=== PATIENT | male | born 1955 | race Caucasian/White ===

== ENCOUNTER 2019-02-19 10:51 | Emergency (ER) | payer OTHER, MEDICAID ==
[~2019-02-19] VITALS: Ht 182.9 cm; Wt 65.8 kg
[2019-02-19 10:57] VITALS: Ht 182.9 cm; Wt 65.8 kg
--- NOTE | 2019-02-19 11:02 | NUR ---
PT COMES IN WITH C/O LOWER ABDOMINAL PAIN, CONSTANT AND NON RADAITING X4 DAYS. STATES "I FEEL CONSTIPATED", LAST BM 5 DAYS AGO. DENIES NARCOTIC USE. REPORTS HAVING CONSTIPATION ISSUES FOR THE LAST TWO MONTHS. ABD ROUND, TENDER TO PALPATION. HYPOACTIVE BS X 4 QUADS. DENIES DYSURIA, BUT REPORTS HE ONLY HAS 1 KIDNEY WORKING. SKIN W/D/I. DRINKIN POF LUIDS AND FOOD WITHOUT ANY ISSUES. DENIES N/V/D. NADIYATNG FOR ER MD PUENTES. CALL LIGHT GIVEN.
--- NOTE | 2019-02-19 12:03 | NUR ---
MEDICATED ORDERED, CALLLIGHT WITHIN REACH.
--- NOTE | 2019-02-19 12:52 | NUR ---
PT WENT TO RESTROOM, BUT UNABLE TO DEFECATE,NOW C/O SEVERE ABD PAIN 03/27. DR CRAMER INFORMED.
--- NOTE | 2019-02-19 13:12 | NUR ---
FLEET ENEMA ADMINISTEREDM WAS UNABLE TO VIEW ON EMAR. DR CRAMER INFOMRED.
--- NOTE | 2019-02-19 14:50 | NUR ---
SUPRE ORAL GIVEN ORDERED.
[2019-02-19 16:10] LABS: BASOPHIL % 0.2 % (0-2); PLATELET COUNT 237 x10^3mcL (130-400); RED CELL DISTRIBUTION WIDTH 14.1 % (11.5-14.5)
[2019-02-19 16:28] LABS: ALBUMIN 4.4 g/dL (3.4-5.0); BILIRUBIN TOTAL 0.56 mg/dL (0.20-1.00); CALCIUM 10.1 mg/dL (8.5-10.1); CARBON DIOXIDE 26.7 mmol/L (21-32); POTASSIUM SERUM 3.5 mmol/L (3.5-5.1)
[2019-02-19 16:40] LABS: CREATININE SERUM 4.3 mg/dL (0.7-1.3)
--- NOTE | 2019-02-19 16:40 | NUR ---
RECEIVED CRITIAL LAB VALUE CALL FROM LAB: BUN = 64, CREAT= 4.3, PRIMARY RN AND DR CRAMER MADE AWARE.//APR RN
[2019-02-19 17:47] LABS: CHOLESTEROL/HDL RATIO 3.1; MAGNESIUM 3.2 mg/dL (1.8-2.4); PHOSPHOROUS 4.3 mg/dL (2.5-4.9)
--- NOTE | 2019-02-19 17:55 | NUR ---
REPORT GIVEN TO JAIRON RN, UPDATED ON STATUS, LABS AND VITALS. PT STABLE FOR TRANSFER TO FLOOR. HL INTACT.
[2019-02-19] MEDS ORDERED: GALANTAMINE HYD12 MG (17:56)
[2019-02-19] MEDS ORDERED: PROPRANOLOL HCL10 MG PO (17:56)
[2019-02-19] MEDS ORDERED: SINEMET 25-1001 TAB PO (17:57)
[2019-02-19] MEDS ORDERED: FENOFIBRATE MI134 MG PO (17:57)
[2019-02-19] MEDS ORDERED: AMANTADINE HCL100 M1 PO (17:57)
[2019-02-19] MEDS ORDERED: HYDROCHLOROTHIA50 MG PO (17:58)
[2019-02-19] MEDS ORDERED: DESMOPRESSIN PO (17:58)
[2019-02-19] MEDS ORDERED: RANITIDINE HYD150 M2 PO (17:58)
[2019-02-19] MEDS ORDERED: FLO4 PO (17:58)
[2019-02-19] MEDS ORDERED: ARICEPT5 MG PO (17:59)
--- NOTE | 2019-02-19 18:09 | NUR ---
PT REPORT HE DEFECATED 99.99%, STATES A LOT OF RELIEF. PT DENIES ANY ABD PAIN AT THIS TIME. DENIES NAUSEA/VOMITING. AT BEDSIDE. VSS.
--- NOTE | 2019-02-19 18:17 | NUR ---
DISCHARGE TO HOME. PATIENT ALERT, ORIENTED TO PERSON, PLACE AND TIME. AFTERCARE INSTRUCTIONS GIVEN AND DISCUSSED WITH PATIENT. PATIENT AMBULATORY TO HOME, DENIES PAIN, NO ACUTE DISTRESS NOTED.
[2019-02-19 18:23] VITALS: BP 97/65
== END 2019-02-19 18:23 | disposition home or self-care (01) ==
LOC: ED 10:51 → MU 16:54
PROVIDERS: Emergency Medicine; Internal Medicine
PROC: 3E023NZ Introduction of Analgesics, Hypnotics, Sedatives into Muscle, Percutaneous Approach (ICD-10-PCS; principal; 2019-02-19)
DX: K56.41 Fecal impaction (principal); G20 Parkinson's disease
CPT/HCPCS: 83880; J1885; Q0092